=== PATIENT | female | born 1950 | race Caucasian/White ===

== ENCOUNTER 2017-07-23 11:55 | Emergency (ER) | payer MEDICARE, OTHER ==
[~2017-07-23] VITALS: Ht 152.4 cm; Wt 68.9 kg
[~2017-07-23 11:55] MED LIST: CARV25TA2 PO; METF500T4 PO; SITA100T PO
--- NOTE | 2017-07-23 12:35 | NUR ---
PATIENT PRESENTS TO ER C/O R SIDED RIB PAIN X 4 DAYS, DENIES ANY TRAUMA. STATING UNABLE TO TAKE DEEP BREATHES. PATIENT IS A/OX 4. RESPIRATION EVEN BUT SHALLOW ON ROOM AIR. NO DISTRESS. VITALS STABLE. SAFETY AND COMFORT MEASURES IN PLACE. AWAITING MD ORDERS.
[2017-07-23] MEDS ORDERED: KETOROLAC TROMETHAMINE 15 MG/ML VIAL ONE (12:41)
[2017-07-23 12:44] LABS: BASOPHILS # (AUTO) 0.1 /CMM (0.0-0.2); EOSINOPHILS # (AUTO) 0.2 /CMM (0.0-0.7); EOSINOPHILS % (AUTO) 2.6 % (0.0-6.0); HEMATOCRIT 39 % (33-45); HEMOGLOBIN 13.4 g/dL (11.5-14.8); LYMPHOCYTES # (AUTO) 2.7 /CMM (0.8-4.8); LYMPHOCYTES % (AUTO) 33.9 % (20.0-44.0); MEAN CORPUSCULAR HEMOGLOBIN 30 PG (26.0-33.0); MEAN CORPUSCULAR HGB CONC 34 g/dl (31.0-36.0); MEAN CORPUSCULAR VOLUME 88 fL (82-100); MONOCYTES # (AUTO) 0.5 /CMM (0.1-1.30); MONOCYTES % (AUTO) 6.3 % (2.0-12.0); NEUTROPHILS # (AUTO) 4.4 /CMM (1.8-8.9); NEUTROPHILS % (AUTO) 56.2 % (43.0-81.0); PLATELET COUNT (AUTO) 311 /CMM (150-450); RDW COEFFICIENT OF VARIATION 12.4 (11.5-15.0); RED BLOOD CELL COUNT(AUTO) 4.46 MIL/uL (4.0-5.2); WHITE BLOOD COUNT (AUTO) 7.9 K/uL (4.3-11.0)
--- NOTE | 2017-07-23 12:45 | NUR ---
NEW IV STARTED ON LAC, 20 G. BLOOD DRAWN AND SENT TO LAB. PATIENT MEDICATED PER MD ORDERS.
[2017-07-23 12:55] LABS: CALCIUM, SERUM 9.5 mg/dL (8.5-10.1); CARBON DIOXIDE 28 mmol/L (21-32); CHLORIDE 101 mmol/L (98-107); CREATININE 0.7 mg/dL (0.6-1.3); GLUCOSE 135 mg/dL (74-106); POTASSIUM 3.9 mmol/L (3.5-5.1); SODIUM SERUM 136 mmol/L (136-145); UREA NITROGEN, BLOOD 15 mg/dL (7-18)
[2017-07-23 12:59] LABS: INR 0.92 (0.87-1.13); PROTHROMBIN TIME 9.6 SECS (9.5-12.7)
[2017-07-23] MEDS ORDERED: KETOROLAC TROMETHAMINE INJ 30 MG/ML VIAL IV ONE (13:00)
[2017-07-23 13:01] LABS: ALANINE AMINOTRANSFERASE 28 U/L (12-78); ALBUMIN 3.8 g/dL (3.4-5.0); ALKALINE PHOSPHATASE 63 U/L (46-116); ASPARTATE AMINOTRANSFERASE 21 U/L (15-37); BILIRUBIN,DIRECT 0.1 mg/dL (0.0-0.2); BILIRUBIN,TOTAL 0.3 mg/dL (0.2-1.0); TOTAL PROTEIN, SERUM 7.6 g/dL (6.4-8.2)
[2017-07-23 13:03] LABS: TROPONIN I < 0.017 ng/mL (0.00-0.056)
--- NOTE | 2017-07-23 13:23 | NUR ---
PATIENT TAKEN TO CT VIA STRETCHER.
--- NOTE | 2017-07-23 13:37 | NUR ---
PATIENT RETURNED FROM CT IN STABLE CONDITION.
--- NOTE | 2017-07-23 15:10 | NUR ---
IV removed. Catheter intact and site benign. Pressure and 4x4 applied to site. No bleeding noted.PT. VERBALIZED UNDERSTANDING OF AFTERCARE INSTRUCTIONS.Patient discharged to home in stable condition. Written and verbal after care instructions given. Patient verbalizes understanding of instruction.
[2017-07-23 15:15] VITALS: BP 113/70
== END 2017-07-23 15:17 | disposition home or self-care (01) ==
LOC: ER 11:56
DX: R07.89 Other chest pain (principal); E11.9 Type 2 diabetes mellitus without complications; I11.0 Hypertensive heart disease with heart failure; I25.10 Atherosclerotic heart disease of native coronary artery without angina pectoris; I50.9 Heart failure, unspecified
CPT/HCPCS: 36415; 71250-TC; 80048-TC; 80076-TC; 84484-TC; 85025-TC; 85730-TC; A4606; J1885; Z7610

== ENCOUNTER 2018-01-29 09:17 | Inpatient (IN) | payer MEDICARE, OTHER ==
[~2018-01-29] VITALS: Ht 152.4 cm; Wt 65.8 kg
[2018-01-29 09:53] LABS: BASOPHILS # (AUTO) 0.1 /CMM (0.0-0.2); BASOPHILS % (AUTO) 1.9 % (0.0-2.0); EOSINOPHILS # (AUTO) 0.2 /CMM (0.0-0.7); EOSINOPHILS % (AUTO) 2.4 % (0.0-6.0); HEMATOCRIT 34 % (33-45); LYMPHOCYTES # (AUTO) 2.5 /CMM (0.8-4.8); LYMPHOCYTES % (AUTO) 38.6 % (20.0-44.0); MEAN CORPUSCULAR HEMOGLOBIN 31 PG (26.0-33.0); MEAN CORPUSCULAR HGB CONC 36 g/dl (31.0-36.0); MEAN CORPUSCULAR VOLUME 86 fL (82-100); MONOCYTES # (AUTO) 0.3 /CMM (0.1-1.30); MONOCYTES % (AUTO) 4.6 % (2.0-12.0); NEUTROPHILS # (AUTO) 3.4 /CMM (1.8-8.9); NEUTROPHILS % (AUTO) 52.5 % (43.0-81.0); PLATELET COUNT (AUTO) 275 /CMM (150-450); RDW COEFFICIENT OF VARIATION 12.8 (11.5-15.0); RED BLOOD CELL COUNT(AUTO) 3.94 MIL/uL (4.0-5.2); WHITE BLOOD COUNT (AUTO) 6.5 K/uL (4.3-11.0)
[2018-01-29] MEDS ORDERED: NITROGLYCERIN 0.4 MG/TAB BOTTLE SL ONE (10:00)
[2018-01-29] MEDS ORDERED: ASPIRIN 325 MG TABLET PO ONE (10:00)
[2018-01-29] MEDS ORDERED: NITROGLYCERIN 0.4 MG/TAB BOTTLE ONE (10:00)
[2018-01-29] MEDS ORDERED: ASPIRIN 325 MG TABLET ONE (10:00)
[2018-01-29 10:04] LABS: CARBON DIOXIDE 27 mmol/L (21-32); CHLORIDE 105 mmol/L (98-107); CREATININE 0.8 mg/dL (0.6-1.3); GLUCOSE 145 mg/dL (74-106); POTASSIUM 4.3 mmol/L (3.5-5.1); SODIUM SERUM 140 mmol/L (136-145); UREA NITROGEN, BLOOD 17 mg/dL (7-18)
[2018-01-29 10:08] LABS: INR 0.94 (0.85-1.15)
[2018-01-29 10:12] LABS: TROPONIN I < 0.017 ng/mL (0.00-0.056)
[2018-01-29 10:14] LABS: D-DIMER 0.5 mg/L(FEU (0.17-0.50)
[2018-01-29 10:17] LABS: B-TYPE NATRIURETIC PEPTIDE 82 PG/ML (0-125)
[2018-01-29] MEDS ORDERED: PRAV10TA40 PO (10:26)
[2018-01-29] MEDS ORDERED: VALS1TAB4 PO (10:26)
[2018-01-29] MEDS ORDERED: NORT10CA PO (10:26)
[2018-01-29] MEDS ORDERED: ACETAMINOPHEN 325 MG TABLET PO PRN (11:00)
[2018-01-29] MEDS ORDERED: INSULIN REGULAR, HUMAN 100 UNIT/ML 3 ML VIAL SQ PRN (11:00)
[2018-01-29] MEDS ORDERED: DEXTROSE 50%-WATER 50 ML DISP.SYRIN IV PRN (11:00)
[2018-01-29] MEDS ORDERED: *INSULIN REGULAR(HUMULIN R)HUM 100 UNIT/ML VIAL SQ PRN (11:00)
[2018-01-29] MEDS ORDERED: HYDROCODONE/APAP 5/325MG 1 EACH TABLET PO PRN (11:00)
[2018-01-29] MEDS ORDERED: MAGNESIUM HYDROXIDE 30 ML UDC PO PRN (11:00)
[2018-01-29] MEDS ORDERED: Z GUARD REMEDY 2 OZ OINT TP PRN (11:00)
[2018-01-29] MEDS ORDERED: ONDANSETRON HCL/PF 4 MG/2 ML VIAL IVP PRN (11:00)
[2018-01-29] MEDS ORDERED: MAG HYDROX/AL HYDROX/SIMETH 30 ML UDC PO PRN (11:00)
[2018-01-29 12:50] LABS: THYROID STIMULATING HORMONE 0.876 uIU/mL (0.358-3.74)
[2018-01-29] MEDS: BLOOD SUGAR DIAGNOSTIC 1 EACH STRIP VI SCH ×3 (12:53→21:01)
[2018-01-29] MEDS ORDERED: MORPHINE SULFATE INJ 4 MG/ML DISP.SYRIN IV PRN (13:00)
[2018-01-29] MEDS: NITROGLYCERIN PACKET 1 GM PACKET TOP SCH ×2 (13:02→21:00)
[2018-01-29] MEDS: ENOXAPARIN SODIUM 40 MG/0.4 ML DISP.SYRIN SQ SCH (13:04)
[2018-01-29] MEDS: ALBUTEROL FS 2.5 MG/3 ML VIAL.NEB NEB SCH ×3 (13:30→23:17)
[2018-01-29 16:24] VITALS: BP 108/63
[2018-01-29 20:11] VITALS: BP 125/65
[2018-01-29] MEDS: CARVEDILOL 12.5 MG TABLET PO SCH (21:01)
[2018-01-29] MEDS ORDERED: ZOLPIDEM TARTRATE 5 MG TABLET PO PRN (22:00)
[2018-01-30] MEDS: NITROGLYCERIN PACKET 1 GM PACKET TOP SCH ×2 (05:53→13:00)
[2018-01-30 07:00] LABS: BASOPHILS % (AUTO) 0.5 % (0.0-2.0); EOSINOPHILS # (AUTO) 0.1 /CMM (0.0-0.7); EOSINOPHILS % (AUTO) 1.4 % (0.0-6.0); HEMATOCRIT 33 % (33-45); HEMOGLOBIN 11.7 g/dL (11.5-14.8); LYMPHOCYTES # (AUTO) 2.1 /CMM (0.8-4.8); LYMPHOCYTES % (AUTO) 24.6 % (20.0-44.0); MEAN CORPUSCULAR HEMOGLOBIN 31 PG (26.0-33.0); MEAN CORPUSCULAR HGB CONC 35 g/dl (31.0-36.0); MEAN CORPUSCULAR VOLUME 88 fL (82-100); MONOCYTES # (AUTO) 0.5 /CMM (0.1-1.30); MONOCYTES % (AUTO) 5.4 % (2.0-12.0); NEUTROPHILS # (AUTO) 5.9 /CMM (1.8-8.9); NEUTROPHILS % (AUTO) 68.1 % (43.0-81.0); PLATELET COUNT (AUTO) 241 /CMM (150-450); RED BLOOD CELL COUNT(AUTO) 3.78 MIL/uL (4.0-5.2); WHITE BLOOD COUNT (AUTO) 8.7 K/uL (4.3-11.0)
[2018-01-30 07:16] LABS: CALCIUM, SERUM 8.6 mg/dL (8.5-10.1); CREATININE 0.7 mg/dL (0.6-1.3); MAGNESIUM 1.7 mg/dL (1.8-2.4); PHOSPHORUS 3.4 mg/dL (2.5-4.9); POTASSIUM 3.5 mmol/L (3.5-5.1)
[2018-01-30] MEDS: BLOOD SUGAR DIAGNOSTIC 1 EACH STRIP VI SCH ×2 (07:19→12:00)
[2018-01-30 08:00] VITALS: BP 107/68
[2018-01-30] MEDS ORDERED: REGADENOSON 0.4 MG/5 ML DISP.SYRIN IVP ONE (08:00)
[2018-01-30 08:02] VITALS: BP 107/68
[2018-01-30] MEDS: ALBUTEROL FS 2.5 MG/3 ML VIAL.NEB NEB SCH ×2 (08:15→15:07)
[2018-01-30] MEDS ORDERED: ASPIRIN 325 MG TABLET PO SCH (09:00)
[2018-01-30] MEDS: Magnesium 1GM/D5W 100ML PREMIX 100 ML IV SCH ×2 (09:00→10:00)
[2018-01-30] MEDS ORDERED: VALSARTAN 80 MG TABLET PO SCH (09:00)
[2018-01-30] MEDS ORDERED: ATORVASTATIN 10 MG TABLET PO SCH (09:00)
[2018-01-30 10:02] VITALS: BP 119/69
[2018-01-30] MEDS: CARVEDILOL 12.5 MG TABLET PO SCH (10:02)
[2018-01-30] MEDS: ENOXAPARIN SODIUM 40 MG/0.4 ML DISP.SYRIN SQ SCH (10:15)
[2018-01-30 10:45] LABS: ABG BASE EXCESS 1.9 mmol/L; ABG OXYGEN SATURATION 92.6 % (92.0-98.5); ABG PCO2 33.9 mmHg (35.0-45.0); ABG PH 7.485 (7.350-7.450); ABG PO2 69.9 mmHg (75.0-100.0); AaDO2 39.2 mmHg; MetHb 0.7 % (0.0-1.5); SITE, ABG Left Radial; VENT MODE, BG ROOM AIR 21%
[2018-01-30] MEDS ORDERED: MAGNESIUM OXIDE 400 MG TABLET PO ONE (11:00)
== END 2018-01-30 15:50 | disposition home or self-care (01) | DRG 204 ==
LOC: ER 09:21 → TELE 11:27 → MED 01-30 09:13
PROVIDERS: ADMIT Internal Medicine; ATTEND Internal Medicine
DX: R07.81 Pleurodynia (principal); I27.20 Pulmonary hypertension, unspecified; E11.9 Type 2 diabetes mellitus without complications; R07.89 Other chest pain; E78.5 Hyperlipidemia, unspecified; G47.33 Obstructive sleep apnea (adult) (pediatric); I10 Essential (primary) hypertension; I25.10 Atherosclerotic heart disease of native coronary artery without angina pectoris; Z87.891 Personal history of nicotine dependence; Z79.4 Long term (current) use of insulin
CPT/HCPCS: 36415; 36600; 71045-TC; 80048-TC; 82306; 82803-TC; 82962-TC; 83735-TC; 83880; 84100-TC; 84439-TC; 84443-TC; 84484-TC; 85025-TC; 85378-TC; 85730-TC; 87081-TC; 93307-TC; 93970-TC; A4606; A9502; J1650; J1815; J2785; J3475; Z7610

== ENCOUNTER 2018-01-31 12:55 | Outpatient (CLI) | payer MEDICARE, OTHER ==
[~2018-01-31 12:55] MED LIST changes: +METF-440 PO; -METF500T4 PO; +NORT10CA PO; +PRAV10TA40 PO; +VALS1TAB4 PO
[2018-01-31 13:02] VITALS: BP 125/74
== END 2018-01-31 23:59 | disposition home or self-care (01) ==
LOC: MSC 12:55
PROVIDERS: ATTEND Internal Medicine
DX: I27.20 Pulmonary hypertension, unspecified (principal); I10 Essential (primary) hypertension; E11.9 Type 2 diabetes mellitus without complications; E78.5 Hyperlipidemia, unspecified; E66.9 Obesity, unspecified; Z79.84 Long term (current) use of oral hypoglycemic drugs; Z87.891 Personal history of nicotine dependence

== ENCOUNTER 2024-04-20 04:19 | Emergency (ER) | payer MEDICARE, OTHER ==
[~2024-04-20] VITALS: Ht 149.9 cm; Wt 70.3 kg
[2024-04-20] MEDS ORDERED: diphenhydrAMINE HCL 50 MG/ML VIAL ONE (04:47)
[2024-04-20] MEDS ORDERED: SUMATRIPTAN SUCCINATE 6 MG/0.5 ML VIAL SQ ONE (04:47)
[2024-04-20] MEDS ORDERED: METOCLOPRAMIDE HCL 10 MG/2 ML VIAL ONE (04:48)
[2024-04-20] MEDS: IV NS 0.9% 1,000 ML BAG IV ONE (04:57)
[2024-04-20] MEDS: METOCLOPRAMIDE HCL 10 MG/2 ML VIAL IV ONE (05:00)
[2024-04-20] MEDS: diphenhydrAMINE HCL 50 MG/ML VIAL IV ONE (05:00)
[2024-04-20] MEDS: SUMATRIPTAN SUCCINATE 6 MG/0.5 ML VIAL SQ ONE (05:00)
[2024-04-20] MEDS: Magnesium 1GM/D5W 100ML PREMIX 100 ML IV SCH (06:00)
[2024-04-20] MEDS: KETOROLAC TROMETHAMINE 15 MG/ML VIAL IV ONE (06:00)
[2024-04-20] MEDS: HALOPERIDOL LACTATE INJ 5 MG/ML VIAL IV ONE (06:00)
[2024-04-20] MEDS ORDERED: Magnesium 1GM/D5W 100ML PREMIX 100 ML IV ONE (06:01)
[2024-04-20] MEDS ORDERED: HALOPERIDOL LACTATE INJ 5 MG/ML VIAL ONE (06:01)
[2024-04-20] MEDS ORDERED: KETOROLAC TROMETHAMINE 15 MG/ML VIAL ONE (06:01)
[2024-04-20] MEDS ORDERED: SUMA100T16 PO (07:18)
[2024-04-20] MEDS ORDERED: METO-295 PO (07:18)
[2024-04-20] MEDS ORDERED: NAPR-1009 PO (07:18)
[2024-04-20] MEDS ORDERED: ACET-2605 PO (07:18)
[2024-04-20 07:30] VITALS: BP 108/66; TEMP 97.6; O2SAT 96
== END 2024-04-20 07:31 | disposition home or self-care (01) ==
LOC: ER 04:22
DX: R51.9 Headache, unspecified (principal); I10 Essential (primary) hypertension; E78.00 Pure hypercholesterolemia, unspecified; Z79.899 Other long term (current) drug therapy
CPT/HCPCS: 99285; 96365; 70450; 96375; 96361; 82962; 96372; J1200; J3030; J2765; A4223; J3475; J1630; J1885

== ENCOUNTER 2025-10-11 12:34 | Emergency (ER) | payer MEDICARE, OTHER ==
[~2025-10-11] VITALS: Ht 149.9 cm; Wt 68.0 kg
[~2025-10-11 12:34] MED LIST changes: +ACET-2605 PO; +METO-295 PO; +NAPR-1009 PO; +SUMA100T16 PO
[2025-10-11 12:45] VITALS: BP 123/70; TEMP 98
[2025-10-11 14:07] VITALS: O2SAT 98
== END 2025-10-11 14:07 | disposition home or self-care (01) ==
LOC: ER 12:50
DX: S63.502A Unspecified sprain of left wrist, initial encounter (principal); E11.9 Type 2 diabetes mellitus without complications; E78.00 Pure hypercholesterolemia, unspecified; I10 Essential (primary) hypertension; Z79.84 Long term (current) use of oral hypoglycemic drugs; Z79.899 Other long term (current) drug therapy; W18.39XA Other fall on same level, initial encounter; Y93.89 Activity, other specified; Y92.89 Other specified places as the place of occurrence of the external cause; Y99.8 Other external cause status
CPT/HCPCS: 73110; 73130-TC